=== PATIENT | female | born 1970 | race Caucasian/White ===

== ENCOUNTER 2017-07-18 10:51 | Emergency (ER) | payer BC ==
[~2017-07-18] VITALS: Ht 170.2 cm; Wt 131.4 kg
[2017-07-18 11:26] LABS: HEMATOCRIT 46.7 % (36.0-46.0); MCH 30.3 PG (29.0-34.0); MCHC 32.5 G/DL (30.0-36.0); MEAN PLAT.VOLUME 10.1 uM^3 (9.5-12.4); PLATELET COUNT 279 K/uL (156-360); RBC DIS.WIDTH-CV 13.2 % (11.8-14.6); RED BLOOD COUNT 5.02 M/uL (3.80-5.20)
[2017-07-18 11:36] LABS: CHLORIDE 104 mEq/L (99-109); POTASSIUM 3.9 mEq/L (3.7-5.4); SODIUM 141 mEq/L (136-147)
[2017-07-18 11:39] LABS: GLUCOSE 94 mg/dL (70-99)
[2017-07-18 11:40] LABS: ANION GAP 11 MEQ/L (2-14)
[2017-07-18 11:41] LABS: TOTAL BILIRUBIN 0.5 mg/dL (0.0-1.0)
[2017-07-18 11:42] LABS: ALKALINE PHOSPHATASE 69 IU/L (3-129); GFR ESTIMATE (CALCULATED) > 59 mL/min/
[2017-07-18 11:44] LABS: UREA NITROGEN (BUN) 13 mg/dL (9-23)
[2017-07-18 11:45] LABS: ADD MIUA? YES; BILIRUBIN NEGATIVE; BLOOD SMALL; COLOR STRAW ((YELLOW)); GLUCOSE (STRIP) NEGATIVE; KETONES NEGATIVE; LEUKOCYTES NEGATIVE; NITRITE NEGATIVE; PROTEIN (STRIP) NEGATIVE; SPECIFIC GRAVITY 1.006 (1.000-1.030); UROBILINOGEN 0.2 MG/DL (0.2-1.0)
[2017-07-18 11:47] LABS: BACTERIA RARE /HPF; EPITHELIAL CELLS RARE /HPF; MUCUS TRACE /LPF; RED BLOOD CELLS 0-5 /HPF (0-5); UCUL ADDED? NO; WHITE BLOOD CELLS 0-5 /HPF (0-5)
[2017-07-18 11:53] LABS: QUANTITATIVE HCG < 4.0 MIU/ML
[2017-07-18 13:08] LABS: LIPASE 25 U/L (1.0-51.0)
[2017-07-18] MEDS ORDERED: BENTYL20 MG PO (14:44)
[2017-07-18 15:08] LABS: TROP-I INTERPRETATION NEGATIVE; TROPONIN-I < 0.01 ng/mL (0.0-0.30)
[2017-07-18] MEDS ORDERED: NORCO 5/3251 TABLET PO (15:16)
[2017-07-18] MEDS ORDERED: ZOFRAN ODT4 MG PO (15:16)
[2017-07-18 15:41] VITALS: BP 112/69
== END 2017-07-18 15:42 | disposition home or self-care (01) ==
LOC: EME 10:51
DX: K82.8 Other specified diseases of gallbladder (principal); R10.11 Right upper quadrant pain; R11.0 Nausea; K76.0 Fatty (change of) liver, not elsewhere classified; J45.909 Unspecified asthma, uncomplicated; E03.9 Hypothyroidism, unspecified; Z88.2 Allergy status to sulfonamides; Z88.1 Allergy status to other antibiotic agents; Z88.8 Allergy status to other drugs, medicaments and biological substances
CPT/HCPCS: 76705; 80053; 81003; 83690; 84484; 84702; 85027; 93005; 99281; 99284

== ENCOUNTER → 2017-08-03 | Outpatient (CLI) | payer BC ==
[~2017-08-03] MED LIST: BENTYL20 MG PO; NORCO 5/3251 TABLET PO; ZOFRAN ODT4 MG PO
== END | disposition home or self-care (01) ==
LOC: NUC 10:52
DX: K82.8 Other specified diseases of gallbladder (principal); R11.0 Nausea
CPT/HCPCS: 78226; A9537

== ENCOUNTER → 2017-08-08 | Outpatient (CLI) | payer BC | END | disposition home or self-care (01) | LOC: NUC 07:44 | DX: R10.11 Right upper quadrant pain (principal); R11.0 Nausea | CPT/HCPCS: 78226; A9510 ==

== ENCOUNTER → 2017-08-31 | Outpatient (CLI) | payer BC ==
[~2017-08-31] VITALS: Ht 170.2 cm; Wt 122.1 kg
[~2017-08-31] MED LIST changes: +COLACE100 MG PO; +PROTONIX40 MG PO; +SYNTHROID125 MCG PO; +ZOFRAN4 MG PO
== END | disposition home or self-care (01) ==
LOC: AMB 09:29
PROC: 0DJ08ZZ Inspection of Upper Intestinal Tract, Via Natural or Artificial Opening Endoscopic (ICD-10-PCS; principal; 2017-08-31)
DX: R10.11 Right upper quadrant pain (principal); K44.9 Diaphragmatic hernia without obstruction or gangrene; K21.9 Gastro-esophageal reflux disease without esophagitis; R11.0 Nausea; Z90.710 Acquired absence of both cervix and uterus; Z88.1 Allergy status to other antibiotic agents; Z88.2 Allergy status to sulfonamides; Z91.041 Radiographic dye allergy status
CPT/HCPCS: J2250; J3010

== ENCOUNTER 2017-09-06 07:39 | Day surgery (SDC) | payer BC ==
[~2017-09-06] VITALS: Ht 170.2 cm; Wt 122.1 kg
[~2017-09-06 07:39] MED LIST changes: -COLACE100 MG PO
[2017-09-06 08:01] VITALS: BP 123/59
[2017-09-06] MEDS ORDERED: COLACE100 MG PO (11:13)
[2017-09-06] MEDS ORDERED: NORCO 5/3251 TABLET PO (11:13)
[2017-09-06 12:45] VITALS: BP 116/58
[2017-09-06 13:40] VITALS: BP 100/54
== END 2017-09-06 14:07 | disposition home or self-care (01) ==
LOC: SDC 07:39
PROC: 0FT44ZZ Resection of Gallbladder, Percutaneous Endoscopic Approach (ICD-10-PCS; principal; 2017-09-06)
DX: K80.10 Calculus of gallbladder with chronic cholecystitis without obstruction (principal); K21.9 Gastro-esophageal reflux disease without esophagitis; R11.0 Nausea
CPT/HCPCS: 88304; J0131; J1170; J1885; J2001; J2250; J2710; J2765; J2795; J3010; J3475; Q0175; S0074